=== PATIENT | female | born 1995 | race African-American/Black ===

== ENCOUNTER 2017-09-05 01:42 | Outpatient (CLI) | payer OTHER ==
[~2017-09-05] VITALS: Ht 157.5 cm; Wt 63.5 kg
[~2017-09-05 01:42] MED LIST: DUEXIS 800-26.1 EACH PO; ERYTHROMYC1 APPLICAT BOTH EYES; FERROUS SULFAT325 MG PO; FLEXERIL10 MG PO; FLEXERIL5 MG PO; HTN MED; MACROBID100 MG PO; NAPROSYN250 MG PO; NAPROSYN500 MG PO; NAPROXEN375 M1 PO; POLYMYXIN B-TMP10 ML BOTH EYES; SUMATRIPTAN SUC25 MG PO; XULANE PATCH1 EACH TD; ZOFRAN ODT8 MG PO
[2017-09-05 01:58] VITALS: BP 121/66
[2017-09-05] MEDS ORDERED: PRENATAL TABLE1 EAC3 PO (02:17)
[2017-09-05] MEDS ORDERED: ASPIR 8181 M1 PO (02:18)
[2017-09-05 02:57] VITALS: BP 117/67
[2017-09-05 04:15] LABS: ADD MIUA? NO; BILIRUBIN NEGATIVE; BLOOD NEGATIVE; COLOR STRAW ((YELLOW)); GLUCOSE (STRIP) NEGATIVE; KETONES NEGATIVE; LEUKOCYTES NEGATIVE; NITRITE NEGATIVE; PROTEIN (STRIP) NEGATIVE; SPECIFIC GRAVITY 1.004 (1.000-1.030); UCUL ADDED? NO; UROBILINOGEN 0.2 MG/DL (0.2-1.0)
[2017-09-05 04:59] LABS: AMPHETAMINES QUANT VALUE 0 NG/ML; BARBITUATES QUANT VALUE 0 NG/ML; BENZODIAZEPINES QUANT VALUE 0 NG/ML; BENZODIAZEPINES, URINE SCREEN Negative (200 ng/mL); MARIJUANA QUANT VALUE 0 NG/ML; OPIATES QUANTITATIVE VALUE 0 NG/ML; PHENCYCLIDINE QUANT VALUE 0 NG/ML
== END 2017-09-05 04:15 | disposition home or self-care (01) ==
LOC: LDRP-OP → 2WEST 01:43 → LDRP-OP 11-18 13:06
PROVIDERS: Advanced Practice Midwife
DX: M54.9 Dorsalgia, unspecified (principal); R51 Headache; O26.893 Other specified pregnancy related conditions, third trimester; O34.219 Maternal care for unspecified type scar from previous cesarean delivery; Z3A.37 37 weeks gestation of pregnancy; Z87.891 Personal history of nicotine dependence
CPT/HCPCS: 59025; 80306 90; 81003; G0378; J7120

== ENCOUNTER 2017-09-23 18:49 | Inpatient (IN) | payer OTHER ==
[2017-09-23] VITALS (12 sets, daily range): BP systolic 137–172; BP diastolic 78–98
[~2017-09-23] VITALS: Ht 157.5 cm; Wt 68.0 kg
[~2017-09-23 18:49] MED LIST changes: +ASPIR 8181 M1 PO; +PRENATAL TABLE1 EAC3 PO
[2017-09-23 20:34] LABS: EOSINOPHIL (%) 3.8 % (0-5); EOSINOPHIL COUNT 0.3 K/uL (0-0.3); HEMATOCRIT 25.3 % (36.0-46.0); IMMATURE GRANULOCYTE (%) 0.3 % (0.0-0.7); INSTRUMENT ABS NEUTROPHIL CT 6.1 K/uL; LYMPHOCYTE COUNT 1.5 K/uL (1.0-2.8); MCH 27.9 PG (29.0-34.0); MCV 87.2 FL (83-99); MONOCYTE (%) 10.5 % (3-12); MONOCYTE COUNT 0.9 K/uL (0-0.8); NEUTROPHIL (%) 68.5 % (45-76); NEUTROPHIL COUNT 6.1 K/uL (1.8-6.4); PLATELET COUNT 139 K/uL (156-360); RBC DIS.WIDTH-SD 43.7 % (39-53)
[2017-09-23 20:43] LABS: ANION GAP 10 MEQ/L (2-14); CHLORIDE 109 MEQ/L (99-109); POTASSIUM 3.1 MEQ/L (3.7-5.4); SAMPLE HEMOLYSIS CHECK 0; SAMPLE ICTERIC CHECK 0; SAMPLE LIPEMIA CHECK 0; SODIUM 140 MEQ/L (136-147); TOTAL BILIRUBIN 0.7 MG/DL (0.0-1.0)
[2017-09-23 20:48] LABS: ALKALINE PHOSPHATASE 148 IU/L (3-129); GFR ESTIMATE (CALCULATED) > 59 mL/min/; GLUCOSE 79 mg/dL (70-99); LACTATE DEHYDROGENASE 146 IU/L (20-246); UREA NITROGEN (BUN) 4 mg/dL (9-23); URIC ACID 5.1 mg/dL (3.1-9.2)
[2017-09-23 21:03] LABS: ADD MIUA? YES; BILIRUBIN NEGATIVE; BLOOD NEGATIVE; COLOR STRAW ((YELLOW)); GLUCOSE (STRIP) NEGATIVE; KETONES NEGATIVE; LEUKOCYTES TRACE; NITRITE NEGATIVE; PROTEIN (STRIP) NEGATIVE; SPECIFIC GRAVITY 1.003 (1.000-1.030); UROBILINOGEN 0.2 MG/DL (0.2-1.0)
[2017-09-23 21:22] LABS: UR CREATININE CONCENTRATION 49.3 MG/DL
[2017-09-23 21:55] LABS: BACTERIA RARE /HPF; BUDDING YEAST 1+; EPITHELIAL CELLS 1+ /HPF; MUCUS NONE SEEN /LPF; RED BLOOD CELLS 0-5 /HPF (0-5); UCUL ADDED? NO; WHITE BLOOD CELLS 0-5 /HPF (0-5)
[2017-09-24] VITALS (19 sets, daily range): BP systolic 126–172; BP diastolic 63–100
[2017-09-25] VITALS (13 sets, daily range): BP systolic 129–186; BP diastolic 72–92
[2017-09-25 07:42] LABS: EOSINOPHIL (%) 0.1 % (0-5); HEMATOCRIT 24.9 % (36.0-46.0); IMMATURE GRANULOCYTE (%) 1.3 % (0.0-0.7); IMMATURE GRANULOCYTE COUNT 0.2 K/uL; INSTRUMENT ABS NEUTROPHIL CT 14.3 K/uL; LYMPHOCYTE COUNT 1.7 K/uL (1.0-2.8); MCH 28.1 PG (29.0-34.0); MCHC 32.5 G/DL (30.0-36.0); MCV 86.5 FL (83-99); MEAN PLAT.VOLUME 11.5 uM^3 (9.5-12.4); MONOCYTE (%) 9.1 % (3-12); MONOCYTE COUNT 1.6 K/uL (0-0.8); NEUTROPHIL (%) 80.1 % (45-76); NEUTROPHIL COUNT 14.3 K/uL (1.8-6.4); PLATELET COUNT 149 K/uL (156-360); RBC DIS.WIDTH-CV 15.1 % (11.8-14.6); RBC DIS.WIDTH-SD 47.2 % (39-53); RED BLOOD COUNT 2.88 M/uL (3.80-5.20); WHITE BLOOD COUNT 17.8 K/uL (4.1-10.2)
[2017-09-26 03:00] VITALS: BP 137/75
[2017-09-26 07:32] VITALS: BP 131/72
[2017-09-26 08:09] LABS: EOSINOPHIL (%) 1.1 % (0-5); EOSINOPHIL COUNT 0.2 K/uL (0-0.3); HEMATOCRIT 31.5 % (36.0-46.0); IMMATURE GRANULOCYTE (%) 0.9 % (0.0-0.7); IMMATURE GRANULOCYTE COUNT 0.2 K/uL; INSTRUMENT ABS NEUTROPHIL CT 11.7 K/uL; LYMPHOCYTE COUNT 2.7 K/uL (1.0-2.8); MCH 27.6 PG (29.0-34.0); MCHC 32.4 G/DL (30.0-36.0); MCV 85.4 FL (83-99); MEAN PLAT.VOLUME 11.1 uM^3 (9.5-12.4); MONOCYTE (%) 9.1 % (3-12); MONOCYTE COUNT 1.5 K/uL (0-0.8); NEUTROPHIL (%) 71.9 % (45-76); NEUTROPHIL COUNT 11.7 K/uL (1.8-6.4); NRBC (%) 0.1 /100 WBC (0-0); RBC DIS.WIDTH-CV 15.5 % (11.8-14.6); RBC DIS.WIDTH-SD 47.2 % (39-53); WHITE BLOOD COUNT 16.2 K/uL (4.1-10.2)
[2017-09-26 08:10] LABS: PLATELET COUNT 222 K/uL (156-360); RED BLOOD COUNT 3.69 M/uL (3.80-5.20)
[2017-09-26 08:29] LABS: ANION GAP 10 MEQ/L (2-14); CHLORIDE 104 MEQ/L (99-109); GFR ESTIMATE (CALCULATED) > 59 mL/min/; GLUCOSE 80 mg/dL (70-99); POTASSIUM 3.6 MEQ/L (3.7-5.4); SAMPLE HEMOLYSIS CHECK 0; SAMPLE ICTERIC CHECK 0; SAMPLE LIPEMIA CHECK 0; SODIUM 140 MEQ/L (136-147); UREA NITROGEN (BUN) 5 mg/dL (9-23)
[2017-09-26] MEDS ORDERED: ENDOCET 5-3251 EACH PO (09:00)
[2017-09-26] MEDS ORDERED: AZITHROMYCIN250 MG PO (09:00)
[2017-09-26] MEDS ORDERED: NIFEDIPINE ER90 MG PO (09:00)
[2017-09-26] MEDS ORDERED: IBUPROFEN800 MG PO (09:00)
[2017-09-26] MEDS ORDERED: PRENATAL TABLE1 EAC3 PO (09:02)
== END 2017-09-26 12:35 | disposition home or self-care (01) | DRG 765 ==
LOC: LDRP-OP 18:49 → 2WEST 18:51 → LDRP-OP 11-18 04:31
PROVIDERS: Advanced Practice Midwife; Obstetrics & Gynecology; Obstetrics & Gynecology Obstetrics
PROC: 30233N1 Transfusion of Nonautologous Red Blood Cells into Peripheral Vein, Percutaneous Approach (ICD-10-PCS; principal; 2017-09-24)
PROC: 10D00Z1 Extraction of Products of Conception, Low, Open Approach (ICD-10-PCS; principal; 2017-09-24)
DX: O10.02 Pre-existing essential hypertension complicating childbirth (principal); O15.1 Eclampsia complicating labor; O13.4 Gestational [pregnancy-induced] hypertension without significant proteinuria, complicating childbirth; O34.211 Maternal care for low transverse scar from previous cesarean delivery; D50.9 Iron deficiency anemia, unspecified; N85.8 Other specified noninflammatory disorders of uterus; O99.02 Anemia complicating childbirth; O99.344 Other mental disorders complicating childbirth; F32.9 Major depressive disorder, single episode, unspecified; O69.81X0 Labor and delivery complicated by cord around neck, without compression, not applicable or unspecified; O99.824 Streptococcus B carrier state complicating childbirth; O11.4 Pre-existing hypertension with pre-eclampsia, complicating childbirth; E87.6 Hypokalemia; K66.0 Peritoneal adhesions (postprocedural) (postinfection); O60.14X0 Preterm labor third trimester with preterm delivery third trimester, not applicable or unspecified; J45.909 Unspecified asthma, uncomplicated; D62 Acute posthemorrhagic anemia; O99.284 Endocrine, nutritional and metabolic diseases complicating childbirth; O99.52 Diseases of the respiratory system complicating childbirth; Z3A.36 36 weeks gestation of pregnancy; Z37.0 Single live birth; Z82.49 Family history of ischemic heart disease and other diseases of the circulatory system; Z83.3 Family history of diabetes mellitus
CPT/HCPCS: 80048; 80053; 81003; 82570; 83615; 84156; 84550; 85025; 85384; 86850; 86900; 86901; 86920; 87086; 94640; 94640 76; 94667; 99202; G0378; J0360; J0690; J0702; J1170; J1885; J2274; J2405; J3010; J3480; J7120; P9016